=== PATIENT | male | born 1995 | race Hispanic/Latino ===

== ENCOUNTER 2022-04-03 10:26 | Emergency (ER) | payer BC, OTHER ==
[~2022-04-03] VITALS: Ht 175.3 cm; Wt 86.2 kg
[2022-04-03] MEDS ORDERED: HYDROCODONE/APAP 10MG-325MG TAB PO STA (11:15)
[2022-04-03] MEDS ORDERED: HYDROCODONE/APAP 5MG-325MG TAB ONE ×2 (11:42→11:44)
[2022-04-03] MEDS ORDERED: ACETAMINOPHEN-1 EAC4 PO (12:02)
== END 2022-04-03 13:25 | disposition home or self-care (01) ==
LOC: FSED 10:33
DX: M54.50 Low back pain, unspecified (principal); X50.1XXA Overexertion from prolonged static or awkward postures, initial encounter; Y92.89 Other specified places as the place of occurrence of the external cause
CPT/HCPCS: 72100; 99283